=== PATIENT | female | born 1990 ===

== ENCOUNTER 2020-12-24 11:21 | Outpatient (CLI) | payer OTHER | END 2020-12-24 13:31 | disposition home or self-care (01) | LOC: OFIC 805 11:21 | PROVIDERS: ATTEND Otolaryngology Otology & Neurotology | DX: H60.393 Other infective otitis externa, bilateral (principal); H92.01 Otalgia, right ear; H61.23 Impacted cerumen, bilateral ==

== ENCOUNTER 2021-01-14 09:26 | Outpatient (CLI) | payer OTHER | END 2021-01-14 10:04 | disposition home or self-care (01) | LOC: OFIC 805 09:26 | PROVIDERS: ATTEND Otolaryngology Otology & Neurotology | DX: H60.393 Other infective otitis externa, bilateral (principal); H61.23 Impacted cerumen, bilateral; H92.01 Otalgia, right ear ==